=== PATIENT | female | born 1965 | race Caucasian/White ===

== ENCOUNTER → 2020-03-21 | Outpatient (CLI) | payer MEDICARE ==
--- NOTE | 2020-03-21 12:26 | RAD ---
3 views left ankle without comparison for foot pain and swelling. FINDINGS: There are postsurgical changes of fracture fixation involving the lateral medial malleolus. No acute fracture or osseous abnormalities identified today. Ankle mortise is symmetric. No joint effusion is evident. IMPRESSION: 1. No acute osseous abnormality. 2. Postsurgical changes of bimalleolar fracture fixation. Electronically signed by: Miguel Kathleen MD (03/21/2020 12:23 PM) [id number]
== END ==
LOC: PMG 11:44
PROVIDERS: ATTEND Family Medicine
DX: M25.572 Pain in left ankle and joints of left foot (principal); Z98.890 Other specified postprocedural states
CPT/HCPCS: 73610

== ENCOUNTER → 2020-07-06 | Outpatient (CLI) | payer MEDICARE ==
[~2020-07-06] MED LIST: AMIT50TA PO; ESCI20TA2 PO; ETOD400T PO; GABA-586; HYDR50TA6 PO; LEVO50TA5 PO; PANT40TA6 PO; POTA20TA4; TOPI100T8 PO; VALA10008 PO; ZOLP10TA
== END ==
LOC: LAB 07:40
PROVIDERS: ATTEND Nurse Anesthetist, Certified Registered
DX: Z01.818 Encounter for other preprocedural examination (principal); Z20.828 Contact with and (suspected) exposure to other viral communicable diseases
CPT/HCPCS: U0003

== ENCOUNTER → 2020-07-11 | Day surgery (SDC) | payer MEDICARE ==
[~2020-07-11] MED LIST changes: +BUPIVACAINE-EPI 0.25%-1:200000 MPF 30 ML VIAL. ONE; +DEXAMETHASONE SOD PHOS 4 MG/ML VIAL. ONE; +IPRATRPIUM/ALBUTEROL 0.5/2.5MG 3 ML NEBU. NEB PRN; +IV RINGERS SOLUTION,LACTATED 1,000 ML IV SCH; +KETOROLAC 30 MG/ML VIAL. ONE; +LIDOCAINE 2% PF 5 ML VIAL. ONE; +MIDAZOLAM HCL PF 2 MG/2 ML VIAL. IV ONE; +ONDANSETRON PF 4 MG/2 ML VIAL. IV PRN; +ONDANSETRON PF 4 MG/2 ML VIAL. ONE; +PROPOFOL 10,000 MCG/ML (20ML) VIAL IV ONE; +SEVOFLURANE 31 TO 60 MINUTES. IH ONE; +ceFAZolin SODIUM 1 GM VIAL ONE
--- NOTE | 2020-07-11 10:38 | PDOC4 ---
BRIEF OPERATIVE NOTE Date if Service: DATE: 07/11/20 TIME: 10:37 Brief Operative Note: Operative Note: DATE OF PROCEDURE: July 11, 2020 PREOPERATIVE DIAGNOSIS: Mechanical complications retained hardware left ankle POSTOPERATIVE DIAGNOSIS: Mechanical complications retained hardware left ankle PROCEDURES PERFORMED: Hardware removal left ankle SURGEON: Chadd Kamara MD ANESTHESIA: General EBL: 10 mL Specimens Obtained: none COMPLICATIONS: none DRAINS: none TOURNIQUET: 30 minutes at 300 mm Hg INDICATIONS: The patient is a 55 year old with mechanical complications of retained hardware. The patient and I discussed the risks, benefits and alternatives of surgery. Procedure in Detail: The patient was identified in the preoperative holding area. The correct left ankle was marked by me. The patient was taken to the operating room where general anesthetic was used. The patient was positioned supine on the operating table. Preoperative antibiotics were given intravenously. A timeout procedure was performed. A tourniquet was placed on the upper thigh. The limb was prepped sterilely and sterile drapes were applied. An Esmarch bandage was used to exsanguinate the limb and the tourniquet was inflated to 300 mmHg. Prior scars were used for the incisions. A lateral incision was made over the plate and screws. Sharp dissection was used and Bovie electrocautery was used only as needed for hemostasis. The plate and all screws were identified, and removed with a screwdriver. Irregularities on the bone from the screw holes were freshened up with a rongeurs. The medial incision was made, through the old scar. Sharp dissection was used, and again Bovie electrocautery was used only as needed for hemostasis. The screw heads were identified, and the screws removed using a screwdriver, without difficulty. Copious irrigation was used in all of the incisions. The incisions were closed with 2-0 Vicryl and #4-0 monocryl. A sterile dressing was applied. The tourniquet was released. Needle and sponge counts were correct. There were no apparent complications. CHADD KAMARA MD Jul 11, 2020 10:38
[2020-07-11 11:31] VITALS: BP 133/75
== END | disposition home or self-care (01) ==
LOC: SURG 08:08
PROVIDERS: ATTEND Orthopaedic Surgery
DX: T84.89XA Other specified complication of internal orthopedic prosthetic devices, implants and grafts, initial encounter (principal); T84.197A Other mechanical complication of internal fixation device of bone of left lower leg, initial encounter; T84.84XA Pain due to internal orthopedic prosthetic devices, implants and grafts, initial encounter; M81.0 Age-related osteoporosis without current pathological fracture; Z96.9 Presence of functional implant, unspecified; Z98.890 Other specified postprocedural states; Z79.899 Other long term (current) drug therapy; Z88.8 Allergy status to other drugs, medicaments and biological substances; Z91.041 Radiographic dye allergy status; Y83.8 Other surgical procedures as the cause of abnormal reaction of the patient, or of later complication, without mention of misadventure at the time of the procedure; Y92.89 Other specified places as the place of occurrence of the external cause
CPT/HCPCS: 20680; J0690; J1100; J1885; J2001; J2405; J2704; J3010; J3490; J7120

== ENCOUNTER → 2020-07-27 | Outpatient (CLI) | payer MEDICARE ==
[2020-07-11 11:31] VITALS: BP 133/75
[~2020-07-27] MED LIST changes: -BUPIVACAINE-EPI 0.25%-1:200000 MPF 30 ML VIAL. ONE; -DEXAMETHASONE SOD PHOS 4 MG/ML VIAL. ONE; -IPRATRPIUM/ALBUTEROL 0.5/2.5MG 3 ML NEBU. NEB PRN; -IV RINGERS SOLUTION,LACTATED 1,000 ML IV SCH; -KETOROLAC 30 MG/ML VIAL. ONE; -LIDOCAINE 2% PF 5 ML VIAL. ONE; -MIDAZOLAM HCL PF 2 MG/2 ML VIAL. IV ONE; -ONDANSETRON PF 4 MG/2 ML VIAL. IV PRN; -ONDANSETRON PF 4 MG/2 ML VIAL. ONE; -PROPOFOL 10,000 MCG/ML (20ML) VIAL IV ONE; -SEVOFLURANE 31 TO 60 MINUTES. IH ONE; -ceFAZolin SODIUM 1 GM VIAL ONE
--- NOTE | 2020-07-27 17:02 | RAD ---
EXAM: LEFT ANKLE 3 VIEWS. HISTORY: Left ankle pain after injury COMPARISON: 03/21/2020 FINDINGS: Three views of the left ankle are obtained. A lateral plate with screws along the distal fibula and 2 screws within the medial malleolus have been removed. There is mild periosteal reaction along some of the screw removal sites consistent with healing. There is no clear cortical erosion. There is soft tissue swelling overlying the lateral malleolus. No fractures are identified. Alignment is normal. There is mild joint space narrowing along the medial mortise joint space. IMPRESSION: 1. Status post hardware removal. Mild soft tissue swelling overlying the lateral malleolus. 2. Mild tibiotalar osteoarthritis. No fracture. Electronically signed by: Vi Bond MD (07/27/2020 4:59 PM) HASEEB
== END ==
LOC: DXRAD 09:33
PROVIDERS: ATTEND Physician Assistant
DX: M19.072 Primary osteoarthritis, left ankle and foot (principal); T84.197A Other mechanical complication of internal fixation device of bone of left lower leg, initial encounter; M79.89 Other specified soft tissue disorders
CPT/HCPCS: 73610

== ENCOUNTER 2021-09-13 13:03 | Emergency (ER) | payer MEDICARE ==
[~2021-09-13] VITALS: Ht 157.5 cm; Wt 69.0 kg
[~2021-09-13 13:03] MED LIST changes: -ESCI20TA2 PO; +ESCI20TA8 PO; -ETOD400T PO; +ETOD400T3 PO; -HYDR50TA6 PO; +HYDR50TA9 PO; +POTA-121; -POTA20TA4
[2021-09-13 13:12] VITALS: BP 133/75
[2021-09-13] MEDS ORDERED: HYDROcodone/APAP 5/325MG 1 TAB TABLET PO ONE ×3 (15:15→20:15)
--- NOTE | 2021-09-13 15:39 | PHYS DOC ---
Past History Additional Past Medical Histor: neuropathy (BENI KRISHNAN APRN) Past Surgical History: No Surgical History (BENI KRISHNAN APRN) Alcohol Use: None (BENI KRISHNAN APRN) General Adult EDM: Chief Complaint: FINGER INJURY HPI: HPI: Patient is a 56-year-old female who presents with pain, purplish, swelling to tip of left, pinky fingertip. Patient states that all of her fingertips were purple in color last week and resolved except for her pinky on her left finger. Has history of fibromyalgia, IgG, celiac. Patient states that she has been taking gabapentin to help with pain, with no relief. (BENI KRISHNAN APRN) Review of Systems: Review of Systems: ROS At least 10 ROS systems have been reviewed and are negative except as documented in the HPI. General: Negative except as outlined in HPI above. Skin: Negative except as outlined in HPI above. HEENT: Negative except as outlined in HPI above. Neck: Negative except as outlined in HPI above. Respiratory: Negative except as outlined in HPI above.. Cardiovascular: Negative except as outlined in HPI above. Abdomen: Negative except as outlined in HPI above. : Negative except as outlined in HPI above. Back/MSK: Negative except as outlined in HPI above. Neuro: Negative except as outlined in HPI above. Psych: Negative except as outlined in HPI above. (BENI KRISHNAN APRN) Current Medications: Current Meds: Current Medications Medications (Trade) Dose Ordered Sig/Sea Start Time Stop Time Status Last Admin Dose Admin Acetaminophen/ Hydrocodone Bitart (Lortab 5/325) 1 tab 1X ONCE 09/13/21 15:15 09/13/21 15:16 DC (BENI KRISHNAN APRN) Allergies: Allergies: Allergies Coded Allergies Type Severity Reaction Last Updated Verified Iodinated Contrast Media Allergy Intermediate 07/12/20 Yes gluten Allergy Intermediate 07/12/20 Yes Uncoded Allergies Type Severity Reaction Last Updated Verified METAL Allergy Unknown 07/11/20 (BENI KRISHNAN APRN) Physical Exam: PE: Constitutional: Well developed, well nourished, no acute distress, non-toxic appearance. [] HENT: Normocephalic, atraumatic, bilateral external ears normal, oropharynx moist, no oral exudates, nose normal. [] Eyes: PERRLA, EOMI, conjunctiva normal, no discharge. [] Neck: Normal range of motion, no tenderness, supple, no stridor. [] Cardiovascular:Heart rate regular rhythm, no murmur [] Lungs & Thorax: Bilateral breath sounds clear to auscultation [] Abdomen: Bowel sounds normal, soft, no tenderness, no masses, no pulsatile masses. [] Skin: Warm, dry, no erythema, no rash. [] Back: No tenderness, no CVA tenderness. [] Extremities: No tenderness, no cyanosis, no clubbing, ROM intact, no edema. Left-sided, tip of pinky finger is purple, tender Neurologic: Alert and oriented X 3, normal motor function, normal sensory function, no focal deficits noted. [] Psychologic: Affect normal, judgement normal, mood normal. [] (BENI KRISHNAN APRN) Current Patient Data: Vital Signs: Vital Signs Date Time Temp Pulse Resp B/P (MAP) Pulse Ox O2 Delivery O2 Flow Rate FiO2 09/13/21 13:12 97.9 98 16 133/75 (94) 100 Room Air (BENI KRISHNAN APRN) EKG: EKG: [] (BENI KRISHNAN APRN) Radiology/Procedures: Radiology/Procedures: []Exam: US EXTREM UPPER ARTERIAL UNILAT History: Black fifth digit, decreased pulses Comparison: None. Technique: Grayscale, color, and spectral Doppler ultrasound images of the left upper extremity arteries. Findings: Right: There is abnormal monophasic waveform in the left subclavian, axillary, brachial, radial, and ulnar arteries consistent with peripheral arterial disease. No elevated peak systolic velocity to suggest focal stenosis. Impression: Peripheral arterial disease throughout the left upper extremity with diffuse monophasic waveform but no focal stenosis. Electronically signed by: Silvia Chambers MD (09/13/2021 3:57 PM) [id number] EXAMINATION: CTA Chest With IV contrast INDICATION:56 years, Female, bruising, swelling, evaluate for aortic dissection. COMPARISON: None. TECHNIQUE: Spiral CTA was obtained from the jugular notch through the posterior costophrenic recess. 3-D MIPS, sagittal and coronal reformats were obtained. Exposure: One or more of the following individualized dose reduction techniques were utilized for this examination: 1. Automated exposure control 2. Adjustment of the mA and/or kV according to patient size 3. Use of iterative reconstruction technique. FINDINGS: LUNGS/PLEURA: Central airways are patent. Moderate centrilobular and paraseptal emphysema. Dependent subsegmental atelectasis in bibasilar lungs. No focal consolidation, pleural effusion or pneumothorax. No suspicious pulmonary nodule. MEDIASTINUM: No pathologic mediastinal or hilar adenopathy. The thoracic aorta and pulmonary arteries are normal in caliber. No evidence of aortic dissection. No pulmonary embolism. The heart is normal in size. No pericardial effusion. Moderate calcified coronary atherosclerosis. The visualized thyroid and the esophagus are unremarkable. AXILLA/SOFT TISSUE: No supraclavicular or axillary adenopathy. Coarse calcifications in both breasts. UPPER ABDOMEN: The visualized upper abdomen appears unremarkable. BONES: No evidence of acute fractures or aggressive osseous lesions. IMPRESSION: 1. No aortic dissection or aneurysm. No pulmonary embolism. 2. Moderate centrilobular and paraseptal emphysema. 3. Moderate calcified coronary atherosclerosis. Electronically signed by: Margareth Amezquita MD (09/13/2021 5:48 PM) [facility] (BENI KRISHNAN APRN) Heart Score: C/O Chest Pain: No Risk Factors: Risk Factors: DM, Current or recent (<one month) smoker, HTN, HLP, family history of CAD, obesity. Risk Scores: Score 0 - 3: 2.5% MACE over next 6 weeks - Discharge Home Score 4 - 6: 20.3% MACE over next 6 weeks - Admit for Clinical Observation Score 7 - 10: 72.7% MACE over next 6 weeks - Early Invasive Strategies (BENI KRISHNAN APRN) Course & Med Decision Making: Course & Med Decision Making Pertinent Labs and Imaging studies reviewed. (See chart for details) [] 56-year-old female presents with pain, purple, swelling to tip of left pinky fingertip. Upper, arterial scan performed. Patient requesting something for pain. Patient given hydrocodone. Upper extremity serial ultrasound shows monophasic waveform. Discussed results with vascular surgery. Doctor recommended getting a CTA to rule out aneurysm. Reports allergy to iodine, hives. Patient given Benadryl, Toradol, Pepcid, normal saline prior to CTA. CTA was unremarkable. While he was waiting for a call back from vascular. Patient states that her fingertips on her left hand all had started to change colors and become painful. Patient was given a warm blanket which improved symptoms on all fingers other than her original pinky finger on the left side. Possible Raynaud's versus Buerger's disorder. Patient is a daily smoker. Spoke with Dr. Sanchez with vascular. Discussed ultrasound and CTA results. He recommends patient to start taking 75 mg of Plavix daily, stop smoking, follow-up with him on Thursday at his clinic to see one of the providers for further evaluation and management. Discussed return precautions in length with patient. Patient states that she understands discharge instructions. Sending patient home with pain medication. (BENI KRISHNAN APRN) Dragon Disclaimer: Dragon Disclaimer: This electronic medical record was generated, in whole or in part, using a voice recognition dictation system. (BENI KRISHNAN APRN) Departure Departure: Impression: Primary Impression: Peripheral arterial disease Disposition: HOME / SELF CARE / HOMELESS Condition: STABLE Referrals: VANDANA AWAN MD (PCP) Patient Instructions: Peripheral Vascular Disease, [id number] Additional Instructions: You were seen in the emergency room for pain and discoloration to the left hand, pinky finger. I spoke with vascular surgeon who recommended you follow-up on Thursday. You need to call their office to make a appointment with one of the providers. The office opens at 8 AM. They also want you to start taking Plavix. I am sending you home with some pain medication as well. Please return to emergency room if you have worsening symptoms or concerns. Otherwise call Thursday morning to see a vascular surgeon please. Address: [address] [place] [id number] Opens 8AM Mon EMERGENCY DEPARTMENT GENERAL DISCHARGE INSTRUCTIONS Thank you for coming to [facility] (ED) today and trusting us with you care. We trust that you had a positivie experience in our Emergency Department. If you wish to speak to the department management, you may call the director at [phone]. YOUR FOLLOW UP INSTRUCTIONS ARE FOLLOWS: 1. Do you have a private Doctor? If you do not have a private doctor, please ask for a resource list of physicians or clinics that may be able to assist you with follow up care. 2. The Emergency Physician has interpreted your x-rays. The X-Ray specialist will also review them. If there is a change in the findings, you will be notified in 48 hours when at all possible. 3. A lab test or culture has been done, your results will be reviewed and you will be notified if you need a change in treatment. ADDITIONAL INSTRUCTIONS AND INFORMATION: 1. Your care today has been supervised by a physician who is specially trained in emergency care. Many problems require more than one evaluation for a complete diagnosis and treatment. We recommend that you schedule your follow up appointment as recommended to ensure complete treatment of you illness or injury. If you are unable to obtain follow up care and continue to have a problem, or if your condition worsens, we recommend that you return to the ED. 2. We are not able to safely determine your condition over the phone nor are we able to give sound medical advice over the phone. For these safety reasons, if you call for medical advice we will ask you to come to the ED for further evaluation. 3. If you have any questions regarding these discharge instructions please call the ED at [phone]. SAFETY INFORMATION: In the interest of safety, wellness, and injury prevention; we encourage you to wear your sealbelt, if you smoke; quite smoking, and we encourage family to use a protective helmet for bicycling and other sporting events that present an increased risk for head injury. IF YOUR SYMPTOMS WORSEN OR NEW SYMPTOMS DEVELOP, OR YOU HAVE CONCERNS ABOUT YOUR CONDITION; OR IF YOUR CONDITION WORSENS WHILE YOU ARE WAITING FOR YOUR FOLLOW UP APPO INTMENT; EITHER CONTACT YOUR PRIMARY CARE DOCTOR, THE PHYSICIAN WHOSE NAME AND NUMBER YOU WERE GIVEN, OR RETURN TO THE ED IMMEDIATELY. Scripts Hydrocodone Bit/Acetaminophen (HYDROCODONE-APAP 5-325 ) 1 Each Tablet 0.5-1 TAB PO PRN Q6HRS PRN for PAIN for 3 Days, #12 TAB 0 Refills Prov: EUL[employer]BENI [employer] 09/13/21 Clopidogrel Bisulfate (PLAVIX) 75 Mg Tablet 1 TAB PO DAILY for PLAVIX for 30 Days, #30 TAB 0 Refills Prov: E[employer]BENI [employer] 09/13/21 Attending Signature Attending Signature I have reviewed the PA/ROAD CONSULTANT's note and plan of care. I was available for consultation as needed during the patient's visit in the emergency department. I agree with the clinical impression, plan, and disposition. (KRYS PELAEZ DO) BENI KRISHNAN APRN Sep 13, 2021 15:39 KRYS PELAEZ DO Sep 14, 2021 02:59
--- NOTE | 2021-09-13 15:59 | RAD ---
Exam: US EXTREM UPPER ARTERIAL UNILAT History: Black fifth digit, decreased pulses Comparison: None. Technique: Grayscale, color, and spectral Doppler ultrasound images of the left upper extremity arter ies. Findings: Right: There is abnormal monophasic waveform in the left subclavian, axillary, brachial, radial, and ulnar a rteries consistent with peripheral arterial disease. No elevated peak systolic velocity to suggest fo sharita stenosis. Impression: Peripheral arterial disease throughout the left upper extremity with diffuse monophasic w aveform but no focal stenosis. Electronically signed by: Silvia Chambers MD (09/13/2021 3:57 PM) [id number]
[2021-09-13] MEDS ORDERED: IV NORMAL SALINE 1,000ML 1,000 ML IV ONE (16:45)
[2021-09-13] MEDS ORDERED: FAMOTIDINE 20 MG/2 ML VIAL IVP ONE (16:45)
[2021-09-13] MEDS ORDERED: diphenhydrAMINE 50 MG/ML VIAL IVP ONE (16:45)
[2021-09-13] MEDS ORDERED: methylPREDNISolone SOD SUCC PF 125 MG/2 ML VIAL. IV ONE (16:45)
[2021-09-13] MEDS ORDERED: IOHEXOL 350 MG/ML 100 ML VIAL. IV ONE (17:00)
[2021-09-13 17:08] LABS: BASO % 1 % (0-3); EOS # 0.1 x10^3/uL (0.0-0.7); EOS % 2 % (0-3); HEMATOCRIT 42.6 % (36.0-47.0); LYMPH % 56 % (24-48); MEAN CORPUSCULAR HEMOGLOBIN 33 pg (25-35); MEAN CORPUSCULAR HGB CONC 33 g/dL (31-37); MEAN CORPUSCULAR VOLUME 101 fL (79-100); MONO # 0.4 x10^3/uL (0.0-1.1); MONO % 8 % (0-9); NEUT # 1.8 x10^3uL (1.8-7.7); NEUT % 34 % (31-73); PLATELET COUNT 181 x10^3/uL (140-400); RED BLOOD COUNT 4.24 x10^6/uL (3.50-5.40); RED CELL DISTRIBUTION WIDTH 16.4 % (11.5-14.5); WHITE BLOOD COUNT 5.4 x10^3/uL (4.0-11.0)
--- NOTE | 2021-09-13 17:50 | RAD ---
EXAMINATION: CTA Chest With IV contrast INDICATION:56 years, Female, bruising, swelling, evaluate for aortic dissection. COMPARISON: None. TECHNIQUE: Spiral CTA was obtained from the jugular notch through the posterior costophrenic recess. 3-D MIPS, sagittal and coronal reformats were obtained. Exposure: One or more of the following individualized dose reduction techniques were utilized for thi s examination: 1. Automated exposure control 2. Adjustment of the mA and/or kV according to patient size 3. Use of iterative reconstruction technique. FINDINGS: LUNGS/PLEURA: Central airways are patent. Moderate centrilobular and paraseptal emphysema. Dependent subsegmental atelectasis in bibasilar lungs. No focal consolidation, pleural effusion or pneumothorax . No suspicious pulmonary nodule. MEDIASTINUM: No pathologic mediastinal or hilar adenopathy. The thoracic aorta and pulmonary arteries are normal in caliber. No evidence of aortic dissection. No pulmonary embolism. The heart is normal in size. No pericardial effusion. Moderate calcified coronary atherosclerosis. The visualized thyroid and the esophagus are unremarkable. AXILLA/SOFT TISSUE: No supraclavicular or axillary adenopathy. Coarse calcifications in both breasts. UPPER ABDOMEN: The visualized upper abdomen appears unremarkable. BONES: No evidence of acute fractures or aggressive osseous lesions. IMPRESSION: 1. No aortic dissection or aneurysm. No pulmonary embolism. 2. Moderate centrilobular and paraseptal emphysema. 3. Moderate calcified coronary atherosclerosis. Electronically signed by: Margareth Amezquita MD (09/13/2021 5:48 PM) [facility]
[2021-09-13 17:59] LABS: CALCIUM 7.7 mg/dL (8.5-10.1); CREATININE 0.7 mg/dL (0.6-1.0); GFR 87.2; POTASSIUM 3.9 mmol/L (3.5-5.1)
[2021-09-13] MEDS ORDERED: CLOPIDOGREL BISULFATE 75 MG TABLET PO ONE (19:45)
[2021-09-13] MEDS ORDERED: HYDR-2155 PO (19:50)
[2021-09-13] MEDS ORDERED: CLOP75TA57 PO (19:50)
== END 2021-09-13 20:10 | disposition home or self-care (01) ==
LOC: ER 13:03
DX: I73.9 Peripheral vascular disease, unspecified (principal); Z91.041 Radiographic dye allergy status; Z88.8 Allergy status to other drugs, medicaments and biological substances
CPT/HCPCS: 36415; 71275; 80048; 85025; 93931; 96361; 96374; 96375; 99285; J1200; J2930; J3490; J7030; Q9967